=== PATIENT | female | born 1940 | race Caucasian/White ===

== ENCOUNTER → 2016-07-07 | Outpatient (CLI) | payer OTHER ==
--- NOTE | 2016-07-07 12:55 | CT ---
CT Chest Without Contrast dated July 07, 2016 Indication: Asbestos exposure. Surveillance. Technique: 4 mm thick helically acquired slices were obtained through the chest. Dose reduction techn iques were utilized. Comparison: EBCT HeartScan from [facility] dated April 15, 2013. Findings: Numerous small linear punctate calcified pleural plaques are present throughout the right a nd left hemithorax. No suspicious pleural thickening or discrete mass to suggest mesothelioma. No pleural or pericardial effusion. No enlarged lymph nodes or masses throughout the axilla, mediasti num, pulmonary martín, or imaged portion of the upper abdomen. The lungs are well aerated and clear. No pulmonary fibrosis or emphysema. Benign linear scarring in t he right middle lobe and inferior lingula are unchanged. A benign, smoothly-marginated, comma shaped 5 x 3 mm noncalcified pulmonary nodule in the lateral segment left lower lobe on image 152 of series 3 is unchanged. No suspicious spiculated or groundglass nodules have developed. The heart size is normal. Thoracic aorta has normal caliber with minimal calcified plaque. A small hi atal hernia is unchanged. The gallbladder is surgically absent with clips in the gallbladder fossa. Impression: 1. 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 2. No suspicious pulmonary nodule or lymphadenopathy has developed. 3. Benign 5 mm pulmonary nodule versus intrapulmonary lymph node in the left lower lobe is unchanged since 2012. 4. Normal caliber minimally atherosclerotic aorta.
== END ==
LOC: FIMAGING 08:27
PROVIDERS: ATTEND Internal Medicine
DX: J94.8 Other specified pleural conditions (principal); Z77.090 Contact with and (suspected) exposure to asbestos

== ENCOUNTER 2017-11-29 15:17 | Emergency (ER) | payer OTHER ==
--- NOTE | 2017-11-29 15:33 | EDPHY ---
H & P Stated Complaint: 1 min episode at 1030 today/bilat visual flashing lights/now resolved/dizzy Time Seen by Provider: 11/29/17 15:33 HPI/ROS: CHIEF COMPLAINT: Momentary vision change today; persistent lightheadedness x3 months HISTORY OF PRESENT ILLNESS: The patient is a 77 y/o female arriving with her complaining of a momentary change in her vision earlier this morning. [place] "just in a flash and my vision was Z-looking with Z-colors and in a second it was gone." It was possibly worse in her right eye, but due to the transient nature it's difficult for her to tell. She felt uneasy afterwards, but denies vision cuts, dark spots in vision, headache, weakness, paresthesias, new hearing changes, near-syncope, or other associated symptoms. Her vision is now at baseline. She does not use prescription lenses or contacts. She gets occasional palpitations for which she is followed by [facility] and recently completed a two-week home heart monitor that she mailed into the office last week and has not received the results of yet. She notes she's had persistent lightheadedness for the last 3 months since starting Forteo injections for osteoporosis; symptoms have persisted since stopping the Forteo. She describes this not as room-spinning dizziness or being off-balance, but rather makes her feel like "something is off" and like she needs "to be more careful when doing anything." This is sometimes exacerbated when transitioning from sitting to standing. She also notes her blood pressure runs low and she has been referred to an almond grinder for evaluation of possible parathyroid issue. REVIEW OF SYSTEMS: A ten point review of systems was performed and is negative with the exception of the items mentioned in the HPI. Past medical history: heart arrhythmia/palpitations - Propranolol, osteoporosis , hypotension, hearing loss Past surgical history: right knee replacement December 2016, bilateral cataract surgeries Family history: Diabetes. Father worked with asbestos leading to exposure in patient. Social history: at bedside. Lives in [place]. Kids live locally. Nonsmoker. Strap Cutting Machine Operator: Dr. Abbott. General Appearance: Alert. Vital signs reviewed. Blood pressure 175/92 at triage. Visual Acuity: Noted from Nurse's notes. Pupils: PERRLA, EOMI, no nystagmus, no trauma, no injection. Lids: No edema or swelling Skin: No proptosis, no periorbital erythema or swelling, no vesicles Conjunctivae: Not injected, not icteric, no discharge Cornea: No trauma Anterior chamber: Normal, no hyphema or hypopyon Posterior Chamber: No papilledema or hemorrhages. ENT, Mouth: Mucous membranes are moist, no oropharyngeal erythema or edema. Neck: No lymphadenopathy, supple. Respiratory: Lungs are clear to auscultation; no wheezes, rales, or rhonchi. Cardiovascular: Regular rate and rhythm; no murmur, rub, or gallop. Gastrointestinal: Abdomen is soft and nontender, no masses or organomegaly. Skin: Warm and dry, no rashes on exposed skin, normal color. Back: Nontender to palpation over the thoracolumbar spine. No CVAT. Extremities: No lower extremity edema, no calf tenderness or swelling. Neurological: Alert and oriented. Moving all four extremities easily and equally. Cranial nerves II through XII are examined and are intact except for decreased hearing to finger rub bilaterally. Strength is 5 over 5 bilaterally with testing of all major motor groups. Sensation is intact to light touch over all 4 extremities. Deep tendon reflexes are 2+ in the biceps and knees bilaterally. Gait is normal. [id number] is performed accurately. Psychiatric: Normal affect. - Personal History Current Tetanus/Diphtheria Vaccine: Yes - Medical/Surgical History Hx Asthma: No Hx Chronic Respiratory Disease: No Hx Diabetes: No Hx Cardiac Disease: Yes Hx Renal Disease: No Hx Cirrhosis: No Hx Alcoholism: No Hx HIV/AIDS: No Hx Splenectomy or Spleen Trauma: No Other PMH: heart arrythmia/r knee replacement/osteoporosis - Social History Smoking Status: Never smoked Constitutional: Initial Vital Signs Temperature (C) 36.5 C 11/29/17 15:21 Heart Rate 77 11/29/17 15:21 Respiratory Rate 18 11/29/17 15:21 Blood Pressure 175/92 H 11/29/17 15:21 O2 Sat (%) 98 11/29/17 15:21 O2 Delivery Mode Room Air Allergies/Adverse Reactions: codeine Allergy (Verified 11/29/17 15:20) levofloxacin [From Levaquin] Allergy (Verified 11/29/17 15:20) Sulfa (Sulfonamide Antibiotics) Allergy (Verified 11/29/17 15:20) Home Medications: Medication Instructions Recorded Vitamin D3 11/29/17 Medical Decision Making ED Course/Re-evaluation: This is a 77 y/o female with a history of palpitations who presents after a very brief episode of "Zs" in her vision this morning while driving and also complains of persistent lightheadedness for the last three months. She had no other neurologic symptoms during this short-lived episode of abnormal vision and has no persisting vision complaints. Her neuro exam is unremarkable apart from decreased hearing to finger rub bilaterally. No indication for neuroimaging at this time. Plan for IV, labs, vision acuity test, and slit lamp exam. Slit lamp exam is normal. I do not find evidence of retinal detachment. She is completely asymptomatic at this time and has been for hours. Labs unremarkable. The 12 lead EKG was interpreted by myself. Sinus mechanism with PVCs. No prior EKGs available for comparison. See hard copy and/or "tracemaster" electronic copy for interpretation. Reevaluated patient and discussed work up. Her exam remains unchanged. I've found no clear cause for her symptoms, but do not suspect dangerous etiology. I' ve recommended following up with her surface mount technology operator and boring machine operator helper or paper winder in the next week. Return precautions discussed. She is comfortable with this plan. Differential Diagnosis: I considered a differential diagnosis that includes but is not limited to headache phenomenon, CVA, TIA, retinal or vitreous detachment. - Data Points Laboratory Results: Laboratory Results 11/29/17 16:10 11/29/17 16:10 Departure - Departure Disposition: Home, Routine, Self-Care Clinical Impression: Vision abnormalities Condition: Good Instructions: Blurred Vision (ED) Additional Instructions: I recommend that you follow up with an eye doctor tomorrow. I am referring you to Dr. Worley, boring machine operator helper. It is okay for you to see the doctor (the paper winder) in [place] also. If you have any other problems with your vision you should be re-evaluated immediately. I have not found a reason for the brief vision change that you experienced this morning. Call Dr. Abbott's office tomorrow and see if you can find out the results of your Holter monitor. Referrals: Tereso Worley MD [Medical Doctor] - As per Instructions Kelsey Culp MD [Primary Care Provider] - As per Instructions Report Scribed for: Brenda Kim Report Scribed by: Soni Thompson Date of Report: 11/29/17 Time of Report: 15:56 Physician Review and Approval Statement: 11/29/17 15:33 Portions of this note were transcribed by the manager of medical. I, Dr. Brenda Kim, personally performed the history, physical exam, and medical decision- making; and confirmed the accuracy of the information in the transcribed note.
[2017-11-29 16:19] LABS: PLATELET COUNT 230 10^3/uL (150-400)
--- NOTE | 2017-11-29 17:14 | CPEKG ---
Heart Rate: 76 RR Interval: 789 P-R Interval: 172 QRSD Interval: 80 QT Interval: 400 QTC Interval: 450 P Eden: 40 QRS Eden: -8 T Wave Eden: 38 EKG Severity - ABNORMAL ECG - EKG Impression: SINUS RHYTHM EKG Impression: VENTRICULAR BIGEMINY Electronically Signed By: Brenda Kim 29-Nov-2017 17:15:49
[2017-11-29 17:38] VITALS: BP 141/78
== END 2017-11-29 17:38 | disposition home or self-care (01) ==
DX: H53.9 Unspecified visual disturbance (principal)